=== PATIENT | female | born 1960 | race Caucasian/White ===

== ENCOUNTER 2019-04-13 21:09 | Inpatient (IN) ==
[2019-04-13 21:54] LABS: BASO# 0.01 X1000 (0.0-0.2); BASO% 0.1 % (0.0-0.8); EOS# 0.04 X1000 (0.0-0.7); EOS% 0.3 % (0.0-10.0); HEMATOCRIT 37.9 % (37.0-47.0); HEMOGLOBIN 13.2 g/dL (12.0-16.0); IMM GRAN# 0.03 X1000 (0.0-0.04); IMM GRAN% 0.2 % (0.0-0.5); LYMPH% 8.7 % (20.5-51.1); MCH 31.7 PG (27-31); MCHC 34.8 g/dL (33-37); MCV 90.9 FL (81-99); MONO# 0.19 X1000 (0.11-0.59); MONO% 1.5 % (1.7-9.3); MPV 10.7 FL (7.4-10.4); NEUT# 11.34 X1000 (1.4-6.5); NEUT% 89.2 % (42.2-75.2); PLT 200 X1000 (130-400); RBC 4.17 XMIL (4.2-5.4); RDW 13.2 % (11.5-14.5); WBC 12.71 X1000 (4.8-10.8)
[2019-04-13] MEDS ORDERED: NS 1,000 ML IV ONE (21:55)
[2019-04-13] MEDS ORDERED: ZOFRAN IV ONE (21:55)
[2019-04-13 22:22] LABS: AGAP 13; ALBUMIN 4.2 g/dL (3.5-5.0); ALKALINE PHOSPHATASE 98 U/L (32-104); BUN 25 mg/dL (8-22); CALCIUM 9.4 mg/dL (8.8-10.2); CHLORIDE 95 mmol/L (98-107); CK PROFILE 59 U/L (24-173); COSMO 283; CREATININE 0.9 mg/dL (0.5-0.9); ESTIMATED GFR > 60; GLUCOSE 288 mg/dL (70-104); GOT 26 U/L (10-30); GPT 19 U/L (10-36); POTASSIUM 4.6 mmol/L (3.5-5.1); SODIUM 134 mmol/L (136-145); TCO2 26 mmol/L (25-35); TOTAL PROTEIN 8.1 g/dL (6.3-8.3)
[2019-04-14] MEDS ORDERED: NS 1,000 ML IV ONE ×2 (00:12→02:46)
[2019-04-14] MEDS ORDERED: ZOFRAN IV PRN (02:46)
--- NOTE | 2019-04-14 02:46 | PROVIDER DOCUMENTATION ---
This chart was entered by Angelica Jones Scribe, acting as scribe for Katelin Desai MD. HPI-Syncope/Dizziness - General Chief Complaint: Syncope Stated Complaint: BLACKED OUT (TWICE) Time Seen by Provider: 04/13/19 21:35 Source: patient Allergies/Adverse Reactions: Patient Allergies Allergy/AdvReac Type Severity Reaction Status Date / Time Sulfa (Sulfonamide Allergy Intermediate BLISTERS Verified 05/28/15 05:08 Antibiotics) Home Medications: Home Medication List Medication Instructions Recorded Confirmed Last Taken Type Fluticasone 50 Mcg Nasal [place] 1 spray MISAEL DAILY 10/14/13 04/13/19 05/27/15 History [Flonase] Ipratropium/Albuterol INH 1 puff INH Q6H PRN PRN 10/14/13 04/13/19 3 Days Ago History [Combivent Respimat Inhaler] ~03/30/15 Simvastatin 20 mg PO HS 10/14/13 04/13/19 05/27/15 History Diazepam [Valium] 10 mg PO PRN PRN 12/24/13 04/13/19 12/20/13 History Esomeprazole [Nexium] 40 mg PO DAILY 05/28/15 04/13/19 05/27/15 History Cyclobenzaprine [Flexeril] 10 mg PO DIRECTED 04/13/19 04/13/19 Unknown History Dapagliflozin Propanediol [Farxiga] 5 mg PO DAILY 04/13/19 04/13/19 Unknown History Duloxetine [Cymbalta] 30 mg PO DAILY 04/13/19 04/13/19 Unknown History Glimepiride 2 mg PO BID 04/13/19 04/13/19 Unknown History Hydrocodone/Acetaminophen [[place] 1 tab PO 2-4XDAY PRN PRN 04/13/19 04/13/19 Unknown History 10-325 Tablet] Insulin Glargine,Hum.rec.anlog 70 units SQ QAM 04/13/19 04/13/19 Unknown History [Toujeo Solostar] Meloxicam 15 mg PO DAILY 04/13/19 04/13/19 Unknown History Pregabalin [Lyrica] 100 mg PO DAILY 04/13/19 04/13/19 Unknown History Varenicline Tartrate [Chantix] 1 mg PO DAILY 04/13/19 04/13/19 Unknown History - History of Present Illness-Syncope/Dizzy Nature of Presenting Problem: Pt is 59/F presenting to ED after having 2 episodes of syncope today. Pt sts that she started having sx about 4 days ago and that they started w/ having some confusion in the middle of the time, where she did not know what door in the house was her bathroom. She sts that she has started having some n/v today as well. Pt has been on Chemo since Sep. Prior Episodes: reports: multiple episodes today Onset/Duration: reports: 4 days ago Timing: reports: still present Position/Activity at time of episode: reports: standing Symptoms prior to episode: reports: lightheaded, confusion Context: reports: almost passed out Location of injury. (If syncope resulted in an injury.): reports: none Current Symptoms: reports: lightheaded. denies: chest pain, short of breath, dizzy, headache, headache, blurred vision Recently Seen Here or By Another Healthcare Provider: No Review of Systems - Adult - REVIEW OF SYSTEMS - ADULT Constitutional: reports: no symptoms reported. denies: chills, fever Eyes: reports: no symptoms reported Ears, Nose, Mouth & Throat: reports: no symptoms reported Cardiovascular: reports: no symptoms reported. denies: chest pain Respiratory: reports: no symptoms reported. denies: cough, shortness of breath, wheezing Gastrointestinal: reports: nausea, vomiting. denies: abdominal pain Genitourinary: reports: no symptoms reported Musculoskeletal: reports: no symptoms reported. denies: bone pain, back pain Integumentary: reports: no symptoms reported Neurological: reports: dizziness/vertigo. denies: headache/migraines, numbness, paresthesia, slurred speech Psychiatric: reports: no symptoms reported Endocrine: reports: no symptoms reported Hematologic/Lymphatic: reports: no symptoms reported Allergic/Immunologic: reports: no symptoms reported All Other Systems: Reviewed and Negative Past History - Adult - PAST MEDICAL HISTORY-ADULT Review of Records: reports: Old Records Reviewed, Nursing Assessment Review, Medications Reviewed, Social history reviewed & non-contributory. Major Childhood Illnesses: reports: denies history Cardiovascular: reports: HTN Respiratory: reports: COPD, lung disease Neurological: reports: Seizures/Epilepsy Endocrine/Immune: reports: Diabetes - PRIOR SURGERIES/PROCEDURES Surgical/Procedure History: reports: cholecystectomy, hysterectomy, BTL, tonsillectomy, orthopedic (extremity) - IMMUNIZATION STATUS Childhood Immunizations: See Nurse Assessment Flu Vaccine: See Nurse Assessment - SOCIAL HISTORY Smoking: other (E-cig) Provider spent 3-5 mins advising pt. on dangers of tobacco.: Discussed manners to quit use, and f/u contacts for add'l counseling. Substance Use: none/never Alcohol Use Frequency: never Living Situation: family Physical Exam-General - PHYSICAL EXAM-ADULT Initial Vital Signs Reviewed: Yes - CONSTITUTIONAL General Appearance: appears well, alert, no apparent distress - EYES Eyes: PERRL/EOMI, pink conjunctivae - HEAD, EARS, NOSE, MOUTH & THROAT HENMT: moist mucous membranes - NECK Neck: non-tender, full range of motion, supple, normal inspection - RESPIRATORY Respiratory: lungs clear - CARDIOVASCULAR Cardiovascular: tachycardia (107) - MUSCULOSKELETAL Extremity: normal range of motion, non-tender, normal gait, normal inspection - SKIN Integumentary: normal color, warm/dry - NEUROLOGIC Neurologic: grossly normal - PSYCHIATRIC Psych/Mental Status: normal mood/affect, normal thought content, normal thought process, oriented x 3 Progress - PLAN OF CARE/RESULTS Progress/Plan/Lab Results: Vital Signs - 8 hr 04/13/19 21:14 04/13/19 21:45 04/13/19 23:28 Temperature 98.0 F Pulse Rate 107 H 95 H Pulse Rate [Sitting] 109 H Pulse Rate [Standing] 118 H Pulse Rate [Supine] 103 H Respiratory Rate 20 13 Blood Pressure 91/63 126/74 Blood Pressure [Sitting] 96/69 Blood Pressure [Standing] 62/52 Blood Pressure [Supine] 130/86 O2 Sat by Pulse Oximetry 95 97 04/14/19 00:08 04/14/19 02:04 Temperature Pulse Rate 90 Pulse Rate [Sitting] 107 H Pulse Rate [Standing] 112 H Pulse Rate [Supine] 96 H Respiratory Rate 10 L Blood Pressure 145/91 Blood Pressure [Sitting] 125/74 Blood Pressure [Standing] 86/66 Blood Pressure [Supine] 120/88 O2 Sat by Pulse Oximetry 97 Laboratory Results - last 24 hr 04/13/19 04/13/19 04/13/19 21:36 21:36 21:36 WBC 12.71 H RBC 4.17 L Hgb 13.2 Hct 37.9 MCV 90.9 MCH 31.7 H MCHC 34.8 RDW Std Deviation 13.2 Plt Count 200 MPV 10.7 H Immature Gran % (Auto) 0.2 Neut % (Auto) 89.2 H Lymph % (Auto) 8.7 L [place] % (Auto) 1.5 L Eos % (Auto) 0.3 Baso % (Auto) 0.1 Immature Gran # (Auto) 0.03 Neut # (Auto) 11.34 H Lymph # (Auto) 1.10 L [place] # (Auto) 0.19 Eos # (Auto) 0.04 Baso # (Auto) 0.01 Segmented Neutrophils Not Reportable Sodium 134 L Potassium 4.6 Chloride 95 L Carbon Dioxide 26 Anion Gap 13 BUN 25 H Creatinine 0.9 Estimated GFR/1.73 m2 > 60 BUN/Creatinine Ratio 28 Glucose 288 H POC Glucose Calculated Osmolality 283 Calcium 9.4 Total Bilirubin 0.90 AST 26 ALT 19 Alkaline Phosphatase 98 Creatine Kinase 59 Troponin T < 0.010 Total Protein 8.1 Albumin 4.2 Globulin 4.0 Albumin/Globulin Ratio 1.0 04/13/19 21:52 WBC RBC Hgb Hct MCV MCH MCHC RDW Std Deviation Plt Count MPV Immature Gran % (Auto) Neut % (Auto) Lymph % (Auto) [place] % (Auto) Eos % (Auto) Baso % (Auto) Immature Gran # (Auto) Neut # (Auto) Lymph # (Auto) [place] # (Auto) Eos # (Auto) Baso # (Auto) Segmented Neutrophils Sodium Potassium Chloride Carbon Dioxide Anion Gap BUN Creatinine Estimated GFR/1.73 m2 BUN/Creatinine Ratio Glucose POC Glucose 278 H Calculated Osmolality Calcium Total Bilirubin AST ALT Alkaline Phosphatase Creatine Kinase Troponin T Total Protein Albumin Globulin Albumin/Globulin Ratio Orders Category Date Time Status Orthostatic Vital Signs NOW Care 04/13/19 21:42 Active Orthostatic Vital Signs NOW Care 04/13/19 23:28 Active CHEST-2 VIEWS [RAD] Stat Exams 04/13/19 21:[address] HEAD W/O CONTRAST [CT] Stat Exams 04/13/19 21:42 Taken BLOOD CULTURE [BLDCUL] Stat Lab 04/13/19 21:48 Ordered CBC WITH ELECTRONIC DIFF [HEME] Stat Lab 04/13/19 21:36 Completed CK PROFILE [SP CHEM] Stat Lab 04/13/19 21:36 Completed COMPREHENSIVE METABOLIC PANEL [CHEM] Stat Lab 04/13/19 21:36 Completed TROPONIN T Stat Lab 04/13/19 21:36 Completed 0.9% Sodium Chloride Inj [Ns] 1,000 ml Med 04/13/19 21:55 Discontinued IV 999 mls/hr 0.9% Sodium Chloride Inj [Ns] 1,000 ml Med 04/14/19 00:12 Discontinued IV 999 mls/hr Ondansetron [Zofran] Med 04/13/19 21:55 Discontinued 4 mg IV NOW ONE Result Diagrams: 04/13/19 21:36 04/13/19 21:36 - CONSULTS/PCP/HOSPITALIST Notification #1 *Consult/PCP/Hospitalist*: Dr. Ramirez Time Discussed: 02:45 Consult Disposition: Admit Departure - Departure Date of Disposition Decision: 04/14/19 Time of Disposition Decision: 02:45 DIAGNOSIS: Orthostatic hypotension Lung cancer Qualifiers: Laterality: unspecified laterality Lung location: unspecified part of lung Qualified Code(s): C34.90 - Malignant neoplasm of unspecified part of unspecified bronchus or lung Vomiting Qualifiers: Vomiting type: unspecified Vomiting Intractability: non-intractable Nausea presence: with nausea Qualified Code(s): R11.2 - Nausea with vomiting, unspecified Disposition: ADMITTED INPATIENT 09 Certified Medical Emergency: Emergent Condition: Stable Referrals and Follow-Ups: Pati Meng MD [Primary Care Provider] - Discharge Education: Steps to Quit Smoking, [id number] - Critical Care Note This patient required my direct & personal management of CC.: No Attestation - Physician/ JONH Attestation Patient care was provided by Advanced Practice Provider:: No The physician spent face to face time with patient:: Yes Advanced Practice Provider documentation review:: Supervising physician onsite and consulted in the evaluation and care of this patient. The physician did have a face to face encounter with the patient. This chart was documented by the indicated scribe, (Angelica Jones Scribe) and accurately reflects the services I performed and decisions made by , Katelin Desai MD, as attested by the provider's signature.
[2019-04-14] MEDS ORDERED: NEXIUM PO ONE (03:16)
--- NOTE | 2019-04-14 05:28 | Diag Imaging Result Doc PS360 ---
EXAM: CHEST-2 VIEWS HISTORY: dizziness TECHNIQUE: Chest two views COMPARISON: None. FINDINGS: The lungs are well expanded except for atelectasis or scarring in the right base. There is a small right pleural effusion or pleural thickening. Right portacatheter in good position. No pneumothorax. No cardiomegaly. The pulmonary edema. There has been prior surgery to the lower neck. IMPRESSION: Small right pleural effusion versus pleural thickening with basilar atelectasis or scarring Electronically signed by Darryl Mejia 04/14/2019 5:25 AM
--- NOTE | 2019-04-14 08:36 | Diag Imaging Result Doc PS360 ---
EXAM: CT HEAD W/O CONTRAST HISTORY: dizziness, syncope TECHNIQUE: Images were obtained from the skull base to vertex without IV contrast as per standard protocol. COMPARISON: None. FINDINGS: There is a 2.5 x 1.8 cm well-circumscribed rounded hypodensity within the left occipital region difficult to determine whether this is intra or extra-axial. 6 Hounsfield units. No surrounding edema. There is mild mass effect. No calcifications. Differential diagnosis would include arachnoid cyst, neuroepithelial cyst, , dermoid, epidermoid, or metastatic disease. Recommend follow-up with MRI brain with contrast. No intracranial hemorrhage is appreciated. No midline shift. No hydrocephalus. No extra-axial collections. Visualized paranasal sinuses are clear. No focal bony lesions. Preliminary interpretation was given by [facility]. IMPRESSION: 1.2.5 cm hypodensity left occipital region. Differential diagnosis includes arachnoid cyst, neuroepithelial cyst, dermoid, epidermoid, metastatic disease. Recommend follow-up MRI brain with contrast. 2.No acute hemorrhage is demonstrated. This exam was performed using automated exposure control, adjustment of mA or kV according to patient size, and/or use of iterative reconstruction technique. Electronically signed by Samina Castro 04/14/2019 8:33 AM
[2019-04-14] MEDS ORDERED: NEXIUM PO SCH (09:00)
[2019-04-14] MEDS: LYRICA PO SCH (10:22)
[2019-04-14] MEDS ORDERED: DUONEB (A & A) INH PRN (10:25)
[2019-04-14] MEDS ORDERED: IMODIUM PO PRN (10:29)
[2019-04-14 11:35] LABS: URINE BACTERIA 2+ /HFP; URINE CAST NONE SEEN /LPF; URINE CRYSTAL NONE SEEN /HPF; URINE EPITHELIAL CELLS >10 /HPF (<10); URINE RBC <10 /HPF (<10); URINE SOURCE CLEAN CATCH; URINE WBC 20-40 /HPF (<10); URINE YEAST PRESENT /HPF
[2019-04-14 11:36] LABS: BILIRUBIN URINE NEGATIVE (NEGATIVE); BLOOD URINE NEGATIVE (NEGATIVE); CLARITY SLIGHTLY CLOUDY (CLEAR); COLOR YELLOW; KETONE URINE NEGATIVE (NEGATIVE); LEUKOCYTES URINE 2+ (NEGATIVE); NITRITE URINE NEGATIVE (NEGATIVE); PROTEIN URINE TRACE mg/dL (NEGATIVE); URINE SMALL ROUND CELLS RENAL PRESENT; UROBILINOGEN URINE NORMAL
[2019-04-14] MEDS: HUMULIN R (PARKWAY) SUBQ SCH ×3 (12:44→21:34)
--- NOTE | 2019-04-14 13:36 | HISTORY AND PHYSICAL ---
PRIMARY CARE PROVIDER: DR. Meng. ACUTE CARE OCCUPATIONAL THERAPIST: She calls him "Dr. Burgos" from [place], was unable to say his name. PRIMARY ONCOLOGIST: Dr. Ceballos. CHIEF COMPLAINT: Dizziness and passing out. HISTORY OF PRESENT ILLNESS: Ms. Kathleen Patterson is a 59-year-old, female with a medical history of hypertension, diabetes mellitus type 2, COPD, and in September was diagnosed with, she says, right lower lobe lung cancer. She has been getting chemotherapy every 3 weeks via a port. Her last chemotherapy was this past Sunday in which she states around 2 to 3 days after, she always gets black watery stools, about 4 or 5 per day, but had some vomiting yesterday which was new. The dizzy spells, she says have been going on for months but this last time, she actually passed out along with the vomiting that she had for about 2 days. When she presented to the emergency department, it was obvious that she was having orthostatic hypotension, likely secondary to dehydration secondary to the diarrhea. She denies any other symptoms. There are no urinary symptoms. She has been coughing up some green phlegm. We will send that for culture. She does have an elevated white blood cell count and we do not have a UA on her. She was admitted for orthostatic hypotension but due to syncope spell, she had a head CT which the preliminary reveals that there is a lesion in the left occipital lobe which is new. She was informed by the ER staff of this reported lesion. Given this new finding, she will need to follow up with her primary, Dr. Ceballos, as soon as she gets discharged. Currently, she is not experiencing any more signs of orthostasis with the hydration so she will likely get to get home today. PAST MEDICAL HISTORY: 1. Hypertension. 2. COPD, on continuous 3 L of oxygen. 3. Diabetes mellitus. 4. Depression. 5. Diabetic neuropathy. 6. Hyperlipidemia. 7. History of obesity with a gastric sleeve in November of 2014. 8. Right lower lobe lung cancer, September of 2018. Chemotherapy every 3 weeks. SURGICAL HISTORY: 1. Gastric sleeve, November of 2014. She states she actually started at a weight of 265 when she had that done. 2. Cholecystectomy. 3. Hysterectomy. 4. Bilateral tubal ligation. 5. Tonsillectomy. 6. Anterior cervical disk fusion x3. 7. Lower back surgery x1. 8. Right chest port. 9. Tumor biopsy on the right lung. SOCIAL HISTORY: Less than half pack per day for 49 years. No alcohol. Denies any illicit drug use. Lives at home with her ex-, her oldest daughter, and one of her granddaughters. FAMILY HISTORY: She denies. ALLERGIES: Sulfa causes vomiting. HOME MEDICATIONS: 1. Chantix 1 mg p.o. twice a day. Currently, that has gotten her down to what she says is 3 cigarettes a day. 2. Albuterol, Atrovent 1 puff inhaled every 6 hours. 3. Cymbalta 30 mg p.o. daily. 4. Propanediol 5 mg p.o. daily. 5. Flexeril 10 mg p.o. daily. 6. Flonase daily. 7. Glimepiride 2 mg p.o. twice daily. 8. Lyrica 100 mg p.o. daily. 9. Mobic 15 mg p.o. daily. 10. Nexium 40 mg p.o. daily. 11. [place] tablet 2 to 4 per day. 12. Simvastatin 20 mg p.o. nightly. 13. Glargine insulin 7 units subcutaneous daily. 14. Valium 10 mg p.o. p.r.n. REVIEW OF SYSTEMS: A 14 point review of systems are complete and all are negative except those mentioned above in the HPI. PHYSICAL EXAMINATION: VITAL SIGNS: Temperature 98.0 degrees, heart rate 88, blood pressure 129/70, O2 saturation on room air is 100%. Orthostatic vital signs on admission: In a supine position, pulse rate 88, blood pressure 130/86. In a standing position, pulse rate 118 and a blood pressure 62/52. Today, several hours later, supine heart rate 88, blood pressure 129/70. In a standing position, heart rate 72, blood pressure 119/97, and she is able to walk without difficulty. GENERAL: Ms. Kathleen Patterson is a 59-year-old, female. She is in no acute distress. She is able answer questions appropriately. HEENT: Atraumatic, normocephalic. Pupils equal, round, reactive to light. Extraocular movements intact. Mucous membranes are moist. NECK: Trachea midline. CARDIOVASCULAR: S1, S2. Regular rate and rhythm. No rubs, gallops, or murmurs. No lower extremity edema. There are +2 dorsalis and radial pulses. Negative JVD or carotid bruits. PULMONARY: Clear to auscultate bilateral breath sounds. No accessory muscle use or work of breathing noted. GI: Soft, nontender, nondistended. Positive bowel sounds x4. EXTREMITIES: Moves all extremities equally with full range of motion. NEUROLOGICAL: A and O x3. Follows commands. Sensory is intact. SKIN: Warm, dry, intact. LABORATORY DATA: White blood cells 12,000, hemoglobin 13, hematocrit 37, platelet count 200,000. Sodium 134, potassium 4.6, BUN 25, creatinine 0.9, glucose 288, calcium 9.4. Bilirubin 0.90, AST 26, ALT 19. CK 59, troponin less than 0.01. Albumin is 4.2. IMAGING: Chest x-ray, small right pleural effusion versus pleural thickening with basilar atelectasis or scarring. Head CT, a 2.5 cm hypodensity in the left occipital region. Differential diagnosis includes an arachnoid cyst, neuroepithelial cyst, dermoid, epidermoid, metastatic disease. Follow up with MRI is recommended. No hemorrhage. ASSESSMENT AND PLAN: 1. Dizziness, sweats, syncope secondary to orthostatic hypotension, resolved with intravenous fluid hydration. She is able to walk without any signs or symptoms of syncope. Denies any more dizziness spells today. 2. Lung cancer. Receives intravenous chemotherapy through her right chest port. Her last chemotherapy was this past Sunday. States she normally has watery black stools about 2 to 3 days afterward. This is not abnormal for her but is requesting some Imodium. Hemoglobin and hematocrit are stable. 3. Nausea. Had some vomiting yesterday. Antiemetics as needed. 4. A new left occipital region hypodensity lesion found on the brain that is 2.5 cm. She will need to follow up with Dr. Ceballos as an outpatient sooner than later. 5. Headache and runny nose with ears stopping up about 3 times a week. She felt it was allergy related. Could be related to this possible lesion on the left occipital region in the brain, possibly. 6. Leukocytosis. She is afebrile. Denies any fever. Denies any urinary symptoms but we are awaiting for a urinalysis. Chest x-ray does not show any new pneumonia but she is coughing up green phlegm which could be coming from the sinuses. It could be more of a sinus infection but also, it could be that it is an inflammatory response to being dehydrated and passing out. 7. Deep venous thrombosis prophylaxis. Sequential compression devices. 8. Tobacco abuse. Cessation discussed. She is currently on Chantix at home. 9. Chronic obstructive pulmonary disease. No exacerbation. Wears continuous 3 L of oxygen at home but she is running 98 to 100 percent on room air here. 10. Diabetes mellitus type 2. We will do pattern of blood glucoses with sliding scale insulin. 11. Depression. Continue home medications. 12. Hyperlipidemia. If she is on anything at home for it, we can continue that. Dictated by DANN Romero for Alexander Ramirez MD cc: DANN Romero MD MTDD
--- NOTE | 2019-04-14 14:24 | Diag Imaging Result Doc PS360 ---
EXAM: MRI BRAIN W/WO CONTRAST 04/14/2019 HISTORY: abnl CT TECHNIQUE: Sagittal T1, axial T1, T2, FLAIR, DWI, post gadolinium T1 axial with coronal reformation, coronal gradient echo. COMMENT: There is an apparent cystic lesion posteriorly adjacent to the occipital lobe on the left which is conceivably extra-axial. This demonstrates CSF signal intensity and was essentially water density of 6-7 Houn[address] units on the CT of the head dated 04/13/2019. There are no previous MRI or CT examinations for comparison otherwise. There is no evidence of restricted diffusion. Otherwise, there is no evidence of mass effect, bleed, or abnormal extra-axial fluid collection. There is no evidence of abnormal gadolinium enhancement. IMPRESSION: Cystic lesion in the posterior left hemisphere as described. Given its bland appearance and lack of enhancement, the most likely diagnosis is an arachnoid cyst. Comparison with previous studies would be helpful in this regard. Electronically signed by Daryl Moya 04/14/2019 2:22 PM
--- NOTE | 2019-04-14 19:24 | HISTORY AND PHYSICAL ---
ADDENDUM REPORT: Patient seen and examined by myself. Full note dictated and discussed with nurse practitioner. Patient presented to the hospital. Currently, she has been dizzy, passing out. She is noted to have low blood pressures in the 80s systolic. We are going to admit her to the hospital, place her on IV fluids. I expect this is more volume depletion. She does have a history of lung cancer and had a CT that was abnormal MRI is currently pending. Hopefully, she is going to be able to eat and drink better. She was having a decreased oral intake for the past several days at home, which I expect led to her volume depletion and her syncopal episode. Hopefully, home this afternoon or tomorrow, depends on her symptoms. cc: Alexander Ramirez MD
[2019-04-14] MEDS: ZOCOR PO SCH (21:34)
[2019-04-15 06:15] LABS: EOS# 0.06 X1000 (0.0-0.7); EOS% 1.5 % (0.0-10.0); HEMOGLOBIN 10.1 g/dL (12.0-16.0); LYMPH# 1.24 X1000 (1.2-3.4); LYMPH% 30.8 % (20.5-51.1); MCH 31.1 PG (27-31); MCHC 33.7 g/dL (33-37); MCV 92.3 FL (81-99); MONO# 0.16 X1000 (0.11-0.59); MPV 10.7 FL (7.4-10.4); NEUT# 2.57 X1000 (1.4-6.5); NEUT% 63.7 % (42.2-75.2); PLT 148 X1000 (130-400); RBC 3.25 XMIL (4.2-5.4); RDW 13.1 % (11.5-14.5); WBC 4.03 X1000 (4.8-10.8)
[2019-04-15] MEDS: NEXIUM PO SCH (06:22)
[2019-04-15] MEDS: HUMULIN R (PARKWAY) SUBQ SCH ×4 (06:22→19:59)
[2019-04-15 06:42] LABS: AGAP 9; ALBUMIN 3.5 g/dL (3.5-5.0); ALKALINE PHOSPHATASE 76 U/L (32-104); BUN 18 mg/dL (8-22); CALCIUM 8.4 mg/dL (8.8-10.2); CHLORIDE 107 mmol/L (98-107); COSMO 284; CREATININE 0.7 mg/dL (0.5-0.9); ESTIMATED GFR > 60; GLUCOSE 116 mg/dL (70-104); GOT 18 U/L (10-30); GPT 14 U/L (10-36); POTASSIUM 3.8 mmol/L (3.5-5.1); SODIUM 141 mmol/L (136-145); TCO2 25 mmol/L (25-35); TOTAL PROTEIN 6.5 g/dL (6.3-8.3)
[2019-04-15] MEDS: FLONASE NAS SCH (09:32)
[2019-04-15] MEDS: MOBIC PO SCH (09:33)
[2019-04-15] MEDS: LYRICA PO SCH (09:33)
[2019-04-15] MEDS: TOUJEO SOLOSTAR SUBQ SCH (09:33)
[2019-04-15] MEDS: CYMBALTA PO SCH (09:33)
[2019-04-15] MEDS: NS 1,000 ML IV SCH ×2 (10:23→19:11)
--- NOTE | 2019-04-15 11:26 | PROGRESS NOTE ---
DATE: 04/15/2019 SUBJECTIVE: Patient reports feeling better. Still, this was definitely better in comparing with yesterday. Denies any more diarrhea or vomiting. OBJECTIVE: Vital Signs: Temperature 97.8 degrees, heart rate 75, respiratory rate 18, blood pressure 96/59, O2 saturation 95% on room air, an orthostatics are as follows: Blood pressure supine 127/60, standing 69/49, and sitting 89/62. General Examination: This is a chronically ill-appearing, 59-year-old female, lying in bed in no acute distress. Cardiovascular exam: S1, S2 heard. No murmurs, gallops, or rubs. Regular rate and rhythm. Respiratory exam: Clear bilaterally to auscultation. No work of breathing or using accessory muscles. Abdomen: Soft, a little bit distended, and bowel sounds present and hyperactive. No organomegaly noted. Extremities: No clubbing, cyanosis, or edema. Peripheral pulses present in both legs. Neurological exam: Patient is alert and oriented x3. Moves 4 extremities. LABORATORY DATA: Hemoglobin 10.1, white cell count 4.03, platelets 148. Normal renal function. Rest of BMP okay. ASSESSMENT AND PLAN: 1. Syncope secondary to orthostatic hypotension. Unfortunately, patient continues to be orthostatic, clinically feeling less dizzy. At this time, I will restart intravenous fluids, in this case normal saline at 150 mL per hour. We will continue checking vitals and also will repeat orthostatics tomorrow. 2. Lung cancer. Patient receiving chemotherapy as per Dr. Ceballos. Last cycle was last Sunday. At this point, she is stable from that standpoint. 3. Sinus infection. The patient was having kind of greenish nasal drainage. So I think at this point, I will use ceftriaxone 2 grams intravenous every 24 hours. We will continue with that at discharge. 4. Leukocytosis, most likely that is resolved. Urinalysis negative. 5. Deep vein thrombosis prophylaxis. Patient is on sequential compression devices. 6. Tobacco abuse cessation discussed. We will continue with Chantix at home. 7. Chronic obstructive pulmonary disease. The patient is not on any exacerbation. Even though she used to do 3 liters of oxygen by nasal cannula, she is having good oxygen saturation on room air. So, we will continue with the same management. 8. Diabetes mellitus type 2. We will continue with sliding scale insulin. Accu-Chek before meals and also at bedtime. 9. Depression. We will continue home medications. 10. Hyperlipidemia. We will continue with home medications. DISPOSITION: I think if the patient is less dehydrated tomorrow and blood pressure is better, then we can let her go. We will continue to monitor this patient closely. cc: Daniel Reynolds MD
[2019-04-15] MEDS ORDERED: ROCEPHIN 2 GM in NS 50 ML IV SCH (12:00)
[2019-04-15] MEDS: ZOCOR PO SCH (19:59)
[2019-04-16] MEDS: NORCO-10 PO PRN ×2 (01:12→08:49)
[2019-04-16] MEDS: NS 1,000 ML IV SCH (02:09)
[2019-04-16 05:56] LABS: EOS# 0.04 X1000 (0.0-0.7); EOS% 1.1 % (0.0-10.0); HEMATOCRIT 28.9 % (37.0-47.0); HEMOGLOBIN 9.7 g/dL (12.0-16.0); LYMPH# 1.24 X1000 (1.2-3.4); LYMPH% 34.3 % (20.5-51.1); MCH 30.7 PG (27-31); MCHC 33.6 g/dL (33-37); MCV 91.5 FL (81-99); MONO# 0.31 X1000 (0.11-0.59); MONO% 8.6 % (1.7-9.3); MPV 10.5 FL (7.4-10.4); NEUT# 2.02 X1000 (1.4-6.5); PLT 130 X1000 (130-400); RBC 3.16 XMIL (4.2-5.4); RDW 12.7 % (11.5-14.5); WBC 3.61 X1000 (4.8-10.8)
[2019-04-16] MEDS: NEXIUM PO SCH (06:22)
[2019-04-16] MEDS: HUMULIN R (PARKWAY) SUBQ SCH (06:24)
[2019-04-16 06:28] LABS: AGAP 6; ALBUMIN 3.2 g/dL (3.5-5.0); ALKALINE PHOSPHATASE 71 U/L (32-104); BUN 12 mg/dL (8-22); CALCIUM 8.2 mg/dL (8.8-10.2); CHLORIDE 108 mmol/L (98-107); COSMO 277; CREATININE 0.6 mg/dL (0.5-0.9); ESTIMATED GFR > 60; GLUCOSE 68 mg/dL (70-104); GOT 20 U/L (10-30); GPT 14 U/L (10-36); SODIUM 140 mmol/L (136-145); TCO2 26 mmol/L (25-35); TOTAL PROTEIN 6.3 g/dL (6.3-8.3)
[2019-04-16 07:27] VITALS: BP 133/71
[2019-04-16] MEDS: FLONASE NAS SCH (08:48)
[2019-04-16] MEDS: LYRICA PO SCH (08:48)
[2019-04-16] MEDS: CYMBALTA PO SCH (08:49)
[2019-04-16] MEDS: MOBIC PO SCH (08:49)
[2019-04-16] MEDS: TOUJEO SOLOSTAR SUBQ SCH (08:49)
[2019-04-16] MEDS ORDERED: INSULIN PEN NEEDLES ONE (08:49)
--- NOTE | 2019-04-17 04:46 | DISCHARGE SUMMARY ---
ADMISSION DATE: 04/15/2019 DISCHARGE DATE: 04/16/2019 ADMISSION DIAGNOSES: 1. Dizziness, sweats, syncope secondary to orthostatic hypotension. 2. Lung cancer. 3. Nausea. 4. New left occipital region hypodensity lesion found on the brain that is 2.5 cm. 5. Headache and runny nose with ears stopping up 3 times a week. 6. Leukocytosis. 7. Tobacco abuse. 8. Chronic obstructive pulmonary disease, no exacerbation. 9. Diabetes mellitus type 2. 10. Depression. 11. Hyperlipidemia. DISCHARGE DIAGNOSES: 1. Syncope secondary to orthostatic hypotension. 2. Lung cancer. 3. Sinus infection. 4. Leukocytosis, resolved. 5. Tobacco abuse. Cessation discussed. 6. Chronic obstructive pulmonary disease, no exacerbation. 7. Diabetes mellitus type 2. 8. Depression. 9. Hyperlipidemia. 10. Cystic brain lesion. 11. Newly found arachnoid cyst on the brain. CONSULTS: None. SURGERIES AND PROCEDURES: None. HOSPITAL COURSE: Ms Kathleen Patterson is a 59-year-old female who presented with complaints of dizziness, lightheadedness and a syncopal spell due to orthostatic hypotension. It immediately resolved after IV fluid hydration, but returned once again which kept her an additional night here in the hospital. It did slowly improve and she is going to be discharged. DISCHARGE VITAL SIGNS: Temperature 98.1 degrees, heart rate 76, respiratory rate 15, blood pressure 133/71, O2 saturation 100% on room air. Last set of orthostatic vital signs were this morning, in supine position heart rate 80, and blood pressure 133/71. In a standing position heart rate 82, and the blood pressure was 117/59. DISCHARGE LABORATORY DATA: White blood cells 3000, hemoglobin 9, hematocrit 28, platelet count 130,000. Sodium 140, potassium 4.0, BUN 12, creatinine 0.6, glucose was down to 68. Calcium 8.2, bilirubin 0.30, AST 20, ALT 14, albumin 3.2. IMAGING: Chest x-ray, small right pleural effusion versus pleural thickening with basilar atelectasis or scarring. Head CT, a 2.5 cm hypodensity to the left occipital region. Differential diagnosis includes arachnoid cyst, neural epithelial cyst, dermoid epidermoid metastatic disease, no acute hemorrhage. Brain MRI, cystic lesion in the posterior left hemisphere. It is an arachnoid cyst. DISCHARGE DIET: Diabetic. DISCHARGE ACTIVITY: As tolerated. DISCHARGE PHYSICIAN FOLLOW-UP: Dr. Ceballos and Dr. Meng. DISCHARGE INSTRUCTIONS: If her condition changes contact the physician and/or return to the emergency department. Changes medically but not limited to, shortness of breath, increased fatigue, excessive bleeding, unexplained weight loss or gain, unmeasurable pains or other symptoms of infection. DISCHARGE DISPOSITION: Home. Dictated by DANN Romero for Daniel Reynolds MD Addendum: Patient seen and examined by myself. Agree with DANN note. It reflects my assessment and plan. Patient is being discharged from hospital in stable condition. Will be seen by Dr. Ceballos in the office. cc: DANN Romero MD [facility]
== END 2019-04-16 10:40 | disposition home or self-care (01) | DRG 641 ==
LOC: P.ED 21:09 → P.MEDSURG 04-14 03:24 → SUATTDRO 04-14 03:24 → INTOOBSV 04-14 03:24 → P.MEDSURG 04-14 03:31
PROVIDERS: ATTEND Internal Medicine